=== PATIENT | female | born 1970 | race Caucasian/White ===

== ENCOUNTER 2018-05-19 20:09 | Emergency (ER) | payer BC ==
[~2018-05-19] VITALS: Ht 165.1 cm; Wt 85.7 kg
--- OUTSIDE RECORDS SUMMARY | 2018-05-19 20:12 | XMS REPORT | Clinical Summary ---
Author Author [facility] Organization [facility] Address Unknown Phone Unavailable Care Team Providers Care Placement Specialist Name Role Phone Sena Harmon MD PCP Allergies Comments Active Allergy Reactions Severity Noted Date No Known Drug Allergies Medications End Date Status Medication Sig Dispensed Refills Start Date Active busPIRone (BUSPAR) 5 MG TK 1 T PO TID 1 tablet PRA 7 Active ONETOUCH ULTRA2 kit USE UTD 0 7 Active ONETOUCH ULTRA TEST strip 0 test strips 7 Active glipiZIDE (GLUCOTROL) 10 TK 1 T PO QD 0 MG tablet 7 Active metFORMIN (GLUCOPHAGE) 0 1,000 mg tablet 7 06/01/2017 nabumetone (RELAFEN) 750 Take 1 tablet 60 tablet 1 MG tablet (750 mg 8 total) by mouth 2 (two) times a day as needed for mild pain or moderate pain for up to 30 days. Active Problems No known active problems Social History Date Tobacco Use Types Packs/Day Years Used Never Smoker Smokeless Tobacco: Never Used Alcohol Use Drinks/Week oz/Week Comments Defer Sex Assigned at Date Recorded Not on file Industry Job Start Date Occupation Not on file Not on file Not on file Travel End Travel History Travel Start No recent travel history available. Last Filed Vital Signs Not on file Plan of Treatment Health Maintenance Due Date Last Done Comments CERVICAL CANCER SCREENING 11/07/1992 INFLUENZA VACCINE 10/09/2017 Results Not on fileafter 05/18/2017 Insurance Payer Benefit Subscriber ID Type Phone Address Plan / Group BCBS BCBS xxxxxxxxxxxx PPO CHOICE PPO/JESSICA HUNTER PPO Advance Directives Patient has advance care planning documents on file. For more information, neo gan contact: Sonu Huff [id number] [place] [address]
[2018-05-19] MEDS ORDERED: KETOROLAC TROMETHAMINE 30 MG/ML VIAL IM ONE (22:11)
--- NOTE | 2018-05-19 23:57 | Diagnostic Imaging Report ---
EXAM: Bilateral Lower Extremity Duplex Ultrasound INDICATION: Pain and swelling. Deep venous thrombosis. COMPARISON: None TECHNIQUE: Faulkner scale, color Doppler and spectral waveform analysis of the bilateral lower extremities deep venous system was performed. FINDINGS: Right Lower Extremity: Common Femoral: Fully compressible with normal spontaneous waveforms. Proximal Greater Saphenous: Fully compressible. Femoral: Fully compressible with normal spontaneous waveforms. Normal response to augmentation. Proximal Deep Femoral: Normal spontaneous waveforms. Popliteal: Fully compressible with normal spontaneous waveforms. Left Lower Extremity: Common Femoral: Fully compressible with normal spontaneous waveforms. Proximal Greater Saphenous: Fully compressible. Femoral: Fully compressible with normal spontaneous waveforms. Normal response to augmentation. Proximal Deep Femoral: Normal spontaneous waveforms. Popliteal: Fully compressible with normal spontaneous waveforms. IMPRESSION: No evidence of deep venous thrombosis above the bilateral calfs. Signed by: Dr. Kyle Gibson M.D. on 05/19/2018 11:54 PM
--- NOTE | 2018-05-20 00:39 | Diagnostic Imaging Report ---
Left knee 3 views HISTORY: Pain COMPARISON: None FINDINGS: No displaced fracture. Osseous alignment is within normal limits. The joint spaces are well-maintained. Small suprapatellar joint effusion. Mild patellar enthesopathy. IMPRESSION: No acute osseous abnormality. Small suprapatellar effusion. Signed by: Dr. Kyle Gibson M.D. on 05/20/2018 12:35 AM
--- NOTE | 2018-05-20 00:41 | Diagnostic Imaging Report ---
Left foot 2- views, HISTORY: Pain COMPARISON: None FINDINGS: No displaced fracture. A small well-corticated ossicle projected medial to the medial malleolus. Osseous alignment is within normal limits. The joint spaces are well-maintained. Diffuse periarticular osteopenia. Tiny plantar calcaneal enthesophyte and Achilles enthesopathy. IMPRESSION: No acute osseous abnormality. Signed by: Dr. Kyle Gibson M.D. on 05/20/2018 12:38 AM
== END 2018-05-20 00:58 | disposition home or self-care (01) ==
LOC: FSED 20:09
DX: M25.562 Pain in left knee (principal); M25.572 Pain in left ankle and joints of left foot; M79.672 Pain in left foot
CPT/HCPCS: 73562; 73600; 73630; 93970; 99284; J1885